=== PATIENT | male | born 1990 | race African-American/Black ===

== ENCOUNTER 2017-10-09 11:46 | Emergency (ER) | payer SELFPAY ==
[~2017-10-09] VITALS: Ht 185.4 cm; Wt 86.0 kg
[2017-10-09] MEDS ORDERED: IBUPROFEN 800MG TABLET PO ONE (12:30)
[2017-10-09 12:42] VITALS: BP 99/78
== END 2017-10-09 16:03 | disposition home or self-care (01) ==
LOC: ER 14:06
DX: S99.912A Unspecified injury of left ankle, initial encounter (principal); X58.XXXA Exposure to other specified factors, initial encounter; Y93.67 Activity, basketball; Y92.89 Other specified places as the place of occurrence of the external cause; Z88.6 Allergy status to analgesic agent; Z88.8 Allergy status to other drugs, medicaments and biological substances
CPT/HCPCS: 73610; 99284; Z7610

== ENCOUNTER 2018-10-10 17:34 | Emergency (ER) | payer SELFPAY ==
[~2018-10-10] VITALS: Ht 185.4 cm; Wt 88.0 kg
[2018-10-10 18:25] VITALS: BP 117/80
[2018-10-10] MEDS ORDERED: IBUPROFEN 600MG TABLET PO ONE (18:30)
== END 2018-10-10 20:14 | disposition home or self-care (01) ==
LOC: ER 17:50
DX: S92.351A Displaced fracture of fifth metatarsal bone, right foot, initial encounter for closed fracture (principal); F12.10 Cannabis abuse, uncomplicated; Z88.5 Allergy status to narcotic agent; Z88.8 Allergy status to other drugs, medicaments and biological substances; W01.0XXA Fall on same level from slipping, tripping and stumbling without subsequent striking against object, initial encounter; Y93.89 Activity, other specified; Y92.89 Other specified places as the place of occurrence of the external cause; Y99.8 Other external cause status
CPT/HCPCS: 29515; 73630; 99283; Z7610

== ENCOUNTER 2022-10-05 12:11 | Emergency (ER) | payer MEDICAID ==
[~2022-10-05] VITALS: Ht 185.4 cm; Wt 88.0 kg
[2022-10-05 12:33] VITALS: BP 110/61
[2022-10-05] MEDS ORDERED: VISCOUS LIDOCAINE 2% 15 ML UDC MM STA (14:23)
[2022-10-05] MEDS ORDERED: BENZ1LOZ73 MT (14:33)
== END 2022-10-05 15:04 | disposition home or self-care (01) ==
LOC: ER 12:11
DX: J02.9 Acute pharyngitis, unspecified (principal)
CPT/HCPCS: 87070; 87430; 99283

== ENCOUNTER 2023-03-03 15:07 | Emergency (ER) | payer MEDICAID ==
[~2023-03-03] VITALS: Ht 185.4 cm; Wt 87.0 kg
[~2023-03-03 15:07] MED LIST: BENZ1LOZ73 MT
[2023-03-03 15:15] VITALS: TEMP 98.3; O2SAT 98
[2023-03-03] MEDS ORDERED: ACETAMINOPHEN 325MG TABLET PO ONE (16:45)
[2023-03-03 18:00] VITALS: BP 126/68; PULSE 73; RESP 16
[2023-03-03] MEDS ORDERED: HYDROCODONE/ACETAMINOPHEN 5/325MG TABLET PO ONE (18:00)
[2023-03-03] MEDS ORDERED: ACET-2708 MT (19:15)
== END 2023-03-03 19:26 | disposition home or self-care (01) ==
LOC: ER 15:07
DX: S62.326A Displaced fracture of shaft of fifth metacarpal bone, right hand, initial encounter for closed fracture (principal); F12.90 Cannabis use, unspecified, uncomplicated; Z88.8 Allergy status to other drugs, medicaments and biological substances; W22.01XA Walked into wall, initial encounter; Y93.89 Activity, other specified; Y92.89 Other specified places as the place of occurrence of the external cause; Y99.8 Other external cause status
CPT/HCPCS: 26605; 26700; 73120; 73130; 99284